=== PATIENT | male | born 1995 | race African-American/Black ===

== ENCOUNTER 2017-11-22 23:39 | Emergency (ER) | payer OTHER ==
[2017-11-23] MEDS: NORCO 5/325MG TABLET (BULK FOR ED) PO (01:21)
[2017-11-23] MEDS: BACLOFEN 10 MG TAB PO (01:21)
== END 2017-11-23 01:30 | disposition home or self-care (01) ==
LOC: M ED 23:39
DX: S33.5XXA Sprain of ligaments of lumbar spine, initial encounter (principal); X50.0XXA Overexertion from strenuous movement or load, initial encounter; Y92.89 Other specified places as the place of occurrence of the external cause; M54.9 Dorsalgia, unspecified; Z79.1 Long term (current) use of non-steroidal anti-inflammatories (NSAID)
CPT/HCPCS: 99283

== ENCOUNTER 2017-12-14 02:54 | Emergency (ER) | payer OTHER ==
[2017-12-14] MEDS: ONDANSETRON 4MG/2ML VIAL (J2405) IV (03:30)
[2017-12-14] MEDS: NS 1,000 ML IV (03:30)
== END 2017-12-14 04:37 | disposition home or self-care (01) ==
LOC: M ED 02:54
DX: A08.4 Viral intestinal infection, unspecified (principal); E86.0 Dehydration
CPT/HCPCS: J2405

== ENCOUNTER 2018-03-20 22:01 | Emergency (ER) | payer OTHER ==
[~2018-03-20] VITALS: Ht 182.9 cm; Wt 115.9 kg
[2018-03-20 22:01] VITALS: BP 142/87
[~2018-03-20 22:01] MED LIST: Advil; BACL10TA2 PO; PEPT262T2 PO; PERC5TAB12 PO; ZOFR4TAB14 PO
[2018-03-20 23:18] LABS: BASO % 0.4 % (0.0-1.0); EOS # 0.2 10^3/uL (0.0-0.50); EOS % 2.3 % (0.0-3.0); HEMATOCRIT 40.9 % (42.0-52.0); HEMOGLOBIN 13.6 g/dl (13.5-17.5); LYMPH # 3.1 10^3/uL (1.5-6.5); LYMPH % 30.8 % (24.0-44.0); MEAN CORPUSCULAR HEMOGLOBIN 28.5 pg (27.0-33.0); MEAN CORPUSCULAR HGB CONC 33.3 g/dl (32.0-36.5); MEAN CORPUSCULAR VOLUME 85.7 fl (80.0-96.0); MONO # 0.7 10^3/uL (0.0-0.8); MONO % 6.8 % (0.0-5.0); NEUTROPHILS % 59.2 % (36.0-66.0); PLATELET COUNT, AUTOMATED 309 10^3/uL (150-450); RED BLOOD COUNT 4.77 10^6/uL (4.30-6.10); WHITE BLOOD COUNT 10.1 10^3/uL (4.0-10.0)
[2018-03-20] MEDS ORDERED: KETOROLAC 30 MG/ML VIAL (J1885) IV ONE (23:30)
[2018-03-20] MEDS ORDERED: SOMA350T PO ×2 (23:33→23:37)
[2018-03-20] MEDS ORDERED: IBUP-1022 PO (23:33)
[2018-03-20 23:44] LABS: BLOOD UREA NITROGEN 14 MG/DL (7-18); CALCIUM LEVEL 8.6 MG/DL (8.5-10.1); CARBON DIOXIDE LEVEL 28 MEQ/L (21-32); CHLORIDE LEVEL 104 MEQ/L (98-107); CREATININE FOR GFR 1.26 MG/DL (0.70-1.30); GLOMERULAR FILTRATION RATE > 60.0 (>60); GLUCOSE, FASTING 119 MG/DL (70-100); POTASSIUM SERUM 3.9 MEQ/L (3.5-5.1); SODIUM LEVEL 139 MEQ/L (136-145)
[2018-03-20] MEDS ORDERED: diazePAM 10 MG TAB PO ONE (23:45)
== END 2018-03-21 00:01 | disposition home or self-care (01) ==
LOC: M ED 22:01
DX: S39.012A Strain of muscle, fascia and tendon of lower back, initial encounter (principal); W20.8XXA Other cause of strike by thrown, projected or falling object, initial encounter; Y92.098 Other place in other non-institutional residence as the place of occurrence of the external cause
CPT/HCPCS: 36415; 80048; 85025; 96374; 99284; J1885